=== PATIENT | female | born 1945 | race Caucasian/White ===

== ENCOUNTER 2017-01-10 12:55 | Day surgery (SDC) | payer MEDICARE, BC ==
[2017-01-06 18:21] VITALS: BMI 23.6
[~2017-01-10 12:55] MED LIST: LACTATED RINGERS 1,000 ML IV SCH; SODIUM CHLORIDE 0.9% 1,000 ML IV SCH
[2017-01-10 13:29] VITALS: TEMP 98.1
[2017-01-10 13:43] LABS: Glucose,Whole Blood 118 mg/dL (75-99)
[2017-01-10 14:40] LABS: Anion Gap 9 mmol/L; Blood Urea Nitrogen 26 mg/dL (7-17); Calcium 9.8 mg/dL (8.4-10.2); Carbon Dioxide 27 mmol/L (22-30); Chloride 108 mmol/L (98-107); Glucose 109 mg/dL (74-99); Non-African American GFR(MDRD) 54 (>60 ml/min/1.73 sqM); Potassium 4.8 mmol/L (3.5-5.1); Sodium 144 mmol/L (137-145)
[2017-01-10] MEDS ORDERED: MIDAZOLAM 2 MG/2 ML VIAL ONE (14:44)
[2017-01-10] MEDS ORDERED: fentaNYL (PF) 50 MCG/ML 2 ML AMP ONE (14:44)
[2017-01-10] MEDS ORDERED: PROPOFOL 10 MG/ML 20 ML VIAL IV ONE (14:44)
[2017-01-10] MEDS ORDERED: IV FLUID CONTINUATION 400 ML IV ONE (14:47)
--- NOTE | 2017-01-10 15:53 | CE ---
DATE OF SERVICE: Yue Lozoya has a history of severe cardiomyopathy, nonischemic, left bundle branch block, status post bi-V ICD. She has Riata ICD lead which has shown evidence of externalization. Her LV lead also has shown subtle evidence of externalization. She was brought in for DFT testing under anesthesia and cinefluoroscopy. Cinefluoroscopy of the leads reveals: 1. Externalized RV ICD lead. 2. Subtle externalized LV lead. No fractures or breaks noted. 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 The device was interrogated and was functioning normally. Lead impedances have been stable. The atrial pacing threshold was 1.2 v at 0.7 ms, P waves 0.6 mV, pacing impedance 350 ohms. RV pacing threshold was 1.25 v at 0.5 ms, R waves 11.9 mV with lead impedance 340 ohms. LV pacing threshold 0.75 v at 0.5 ms, pacing impedance of 450 ohms, high-voltage impedance 60 ohms. A DC ( ) shock was used to induce ventricular fibrillation. This was adequately and appropriately detected at least sensitivity and successfully internally defibrillated in the anodal configuration with SVC of shock impedance 60 ohms. Charge time 1.8 seconds. No postshock noise. The device was then reprogrammed according to the Madit-RIT parameters. IMPRESSION: 1. Fluoroscopically externalized RV lead. 2. Fluoroscopically subtle externalized LV lead, but 3. Normal electrical function of the leads and device with stable impedances and DFT at or below 10 joules. 4. Device reprogrammed according to the Madit-RIT programming.
[2017-01-10 17:12] VITALS: PULSE 62; RESP 16
[2017-01-10 17:13] VITALS: BP 127/79
== END 2017-01-10 17:22 | disposition home or self-care (01) ==
LOC: CATHEP 12:55
PROVIDERS: ATTEND Internal Medicine Clinical Cardiac Electrophysiology
DX: I42.0 Dilated cardiomyopathy (principal); Z45.02 Encounter for adjustment and management of automatic implantable cardiac defibrillator; I44.7 Left bundle-branch block, unspecified; I49.01 Ventricular fibrillation; I11.0 Hypertensive heart disease with heart failure; I50.22 Chronic systolic (congestive) heart failure; E78.5 Hyperlipidemia, unspecified; E11.9 Type 2 diabetes mellitus without complications; Z79.84 Long term (current) use of oral hypoglycemic drugs; Z79.82 Long term (current) use of aspirin; Z79.899 Other long term (current) drug therapy; Z88.1 Allergy status to other antibiotic agents; Z88.2 Allergy status to sulfonamides; Z91.09 Other allergy status, other than to drugs and biological substances
CPT/HCPCS: 93642; 76000; 80048; J2250; J3010; J2704

== ENCOUNTER 2018-10-03 06:42 | Day surgery (SDC) | payer MEDICARE, BC ==
[2018-09-27 16:27] VITALS: BMI 24.3
[~2018-10-03 06:42] MED LIST changes: +CLINDAMYCIN 600 MG in SODIUM CHLORIDE 0.9% IRRIGATIO 250 ML IRRIGATION ONE; +CLINDAMYCIN 900 MG in DEXTROSE 5% IN WATER 50 ML IVPB ONE; -LACTATED RINGERS 1,000 ML IV SCH
[2018-10-03] MEDS ORDERED: ePHEDrine SULFATE/0.9% NACL/PF 50 MG/5 ML SYRINGE IV ONE (07:22)
[2018-10-03] MEDS ORDERED: fentaNYL (PF) 50 MCG/ML 2 ML AMP ONE (07:22)
[2018-10-03] MEDS ORDERED: MIDAZOLAM 2 MG/2 ML VIAL ONE (07:22)
[2018-10-03] MEDS ORDERED: PROPOFOL 10 MG/ML 20 ML VIAL IV ONE (07:22)
[2018-10-03 07:23] LABS: Glucose,Whole Blood 139 mg/dL (75-99)
[2018-10-03 07:31] LABS: Basophils # (A) 0.1 k/uL (0-0.2); Basophils % (A) 1 %; Eosinophils # (A) 0.2 k/uL (0-0.7); Eosinophils % (A) 2 %; HCT 42.3 % (34.0-46.0); HGB 14.2 gm/dL (11.4-16.0); Lymphocytes # (A) 1.8 k/uL (1.0-4.8); Lymphocytes % (A) 21 %; MCH 31.6 pg (25.0-35.0); MCHC 33.6 g/dL (31.0-37.0); MCV 94.1 fL (80.0-100.0); Monocytes # (A) 0.6 k/uL (0-1.0); Monocytes % (A) 8 %; Neutrophils # (A) 5.8 k/uL (1.3-7.7); Neutrophils % (A) 68 %; Platelet Count 295 k/uL (150-450); RDW 12.4 % (11.5-15.5); WBC 8.5 k/uL (3.8-10.6)
[2018-10-03 07:44] LABS: Calcium 10.1 mg/dL (8.4-10.2); Potassium 4.9 mmol/L (3.5-5.1)
[2018-10-03] MEDS ORDERED: LIDOCAINE 1% INJ 10MG/ML (20 ML MDV) ONE (07:45)
[2018-10-03] MEDS ORDERED: LIDOCAINE 1% INJ 10MG/ML (20 ML MDV) SQ ONE (08:02)
--- NOTE | 2018-10-03 09:18 | P.HPCAR ---
History of Present Illness Diagnosis Nonischemic cardio myopathy severe LV dysfunction normal coronary arteries in 2006 LV gram by cath showed EF of 30% at that time. This was performed by Dr. Bergeron She underwent a biventricular ICD implantation by ne for severe congestive heart failure with severe LV dysfunction Within 2 weeks of implant she presented to the hospital with 2 episodes of VF arrest and was successfully resuscitated by the implanted device ICD generator change for device at [facility] for secondary prevention of sudden cardiac Left ventricular ejection fraction has improved during biventricular pacing to 50% CHF has improved significantly corresponding to the improvement in LV systolic function with biventricular pacing On guide lender to medical treatment ICD lead is externalized chronically but is functioning normally Successful ICD generator change was performed, biventricular with a [employer] medical coding technician Defibrillation testing was performed DFT was at 20 J with a cathodal configuration A DFT was 10 J with an anodal configuration Physical Exam Vitals: Vital Signs Temp Pulse Resp BP Pulse Ox 10/03/18 07:16 98.1 F 65 16 183/88 98 Intake and Output 10/02/18 10/03/18 10/03/18 22:59 06:59 14:59 Intake Total 40 56 Balance 40 56 Intake: IV 40 56 Other: Weight 77.5 kg Past Medical History Past Medical History: Heart Failure, Diabetes Mellitus, Eye Disorder, GERD/ Reflux, Hyperlipidemia, Hypertension, Neurologic Disorder, Pneumonia, Sleep Apnea/CPAP/BIPAP, Thyroid Disorder Additional Past Medical History / Comment(s): See Dr Pulido's H & P FOR CARDIAC HX, tremors, macular degeneration bilateral eyes. URI X4 months, resolved Aug 2018. Continues with SOB with activity. Hx pneumonia 2009. No CPAP. History of Any Multi-Drug Resistant Organisms: None Reported Past Surgical History: Adenoidectomy, AICD, Appendectomy, Back Surgery, Breast Surgery, Heart Catheterization, Tonsillectomy, Tubal Ligation Additional Past Surgical History / Comment(s): BILATERAL BREAST BIOPSY, BILATERAL CATARACTS, RIGHT RING and LEFT MIDDLE FINGER SURGERY, D & C, back surgery X2, eye surgery for tear duct. Past Anesthesia/Blood Transfusion Reactions: No Reported Reaction Additional Past Anesthesia/Blood Transfusion Reaction / Comment(s): No hx of problems with prior autologeous blood. Type of Cardiac Device: Biventricular Pacemaker, AICD Device Placement Date:: 2006 AND 2010 Past Psychological History: Anxiety, Depression Smoking Status: Never smoker Past Alcohol Use History: Occasional Past Drug Use History: None Reported - Past Family History Mother Family Medical History: Cancer Father Family Medical History: Cancer Physical Examination Vital Signs Temp Pulse Resp BP Pulse Ox 10/03/18 07:16 98.1 F 65 16 183/88 98 Intake and Output 10/02/18 10/03/18 10/03/18 22:59 06:59 14:59 Intake Total 40 56 Balance 40 56 Intake: IV 40 56 Other: Weight 77.5 kg Results 10/03/18 07:00 10/03/18 07:00 CBC 10/03/18 Range/Units 07:00 WBC 8.5 (3.8-10.6) k/uL RBC 4.50 (3.80-5.40) m/uL Hgb 14.2 (11.4-16.0) gm/dL Hct 42.3 (34.0-46.0) % Plt Count 295 (150-450) k/uL Comprehensive Metabolic Panel 10/03/18 Range/Units 07:00 Sodium 142 (137-145) mmol/L Potassium 4.9 (3.5-5.1) mmol/L Chloride 105 (98-107) mmol/L Carbon Dioxide 28 (22-30) mmol/L BUN 30 H (7-17) mg/dL Creatinine 0.97 (0.52-1.04) mg/dL Glucose 142 H (74-99) mg/dL Calcium 10.1 (8.4-10.2) mg/dL Current Medications Generic Name Dose Route Start Last Admin Trade Name Freq PRN Reason Stop Dose Admin Sodium Chloride 1,000 mls @ 50 mls/hr 10/03/18 06:19 10/03/18 06:59 Saline 0.9% IV 40 mls .Q20H [facility] Administration Intake and Output 10/02/18 10/03/18 10/03/18 22:59 06:59 14:59 Intake Total 40 56 Balance 40 56 Intake: IV 40 56 Other: Weight 77.5 kg Patient Weight 10/04/18 06:59 Weight 77.5 kg 10/03/18 07:00 10/03/18 07:00
[2018-10-03] MEDS ORDERED: HYDROcodone/APAP 5-325MG 1 EACH TAB PO PRN (09:19)
[2018-10-03] MEDS ORDERED: ACETAMINOPHEN IV (For NPO) 1,000 MG in EMPTY BAG 1 BAG IVPB ONE (09:19)
--- NOTE | 2018-10-03 09:38 | P.DS ---
Providers Attending physician: Serafin Pulido Primary care physician: [facility] Course: Patient underwent bilateral ICD generator change successfully today and will be discharged home after completion of IV antibiotics 9 PM no changes in her medications follow-up in 5 days the device clinic she'll be discharged home if she is hemodynamically stable and the ICD site is healing well Discussed with nurse Plan - Discharge Summary Discharge Rx Participant: No New Discharge Prescriptions: Continue Simvastatin [Zocor] 40 mg PO HS Ranitidine HCl [Zantac] 150 mg PO BID Cetirizine HCl [Zyrtec] 10 mg PO HS Lisinopril [Zestril] 5 mg PO QAM Carbidopa-Levodopa 25-100 mg [Sinemet 25-100 mg] 1 each PO TID glipiZIDE [Glucotrol XL] 5 mg PO QAM Carvedilol [Coreg] 6.25 mg PO BID Azelastine HCl [Astelin] 2 spray EA NOSTRIL BID PRN PRN Reason: Congestion Spironolactone [Aldactone] 12.5 mg PO QAM Aspirin 81 mg PO DAILY Hydrocodone/Acetaminophen [Hydrocodone/Acetaminophen 10-325] 1 each PO Q6H PRN PRN Reason: Pain Cholecalciferol [Vitamin D3] 1,000 unit PO DAILY Acetaminophen [Tylenol] 325 mg PO Q4H PRN PRN Reason: Pain Levothyroxine Sodium [Synthroid] 25 mcg PO QAM [place]leton-3 Fatty Acids/Fish Oil [Fish Oil 1,000 mg Softgel] 1 each PO BID Multivitamin [Children's Multivitamins] 1 each PO DAILY Lutein 10 mg PO QAM Calcium Carbonate/Vitamin D3 [Calcium 600-Vit D3 400 Tablet] 1 each PO DAILY Acetaminophen/Diphenhydramine [Tylenol PM 500-25mg] 1 tab PO HS Discharge Medication List Aspirin 81 mg PO DAILY 04/03/14 [History] Azelastine HCl [Astelin] 2 spray EA NOSTRIL BID PRN 04/03/14 [History] Carbidopa-Levodopa 25-100 mg [Sinemet 25-100 mg] 1 each PO TID 04/03/14 [History ] Carvedilol [Coreg] 6.25 mg PO BID 04/03/14 [History] Cetirizine HCl [Zyrtec] 10 mg PO HS 04/03/14 [History] Hydrocodone/Acetaminophen [Hydrocodone/Acetaminophen 10-325] 1 each PO Q6H PRN 04/03/14 [History] Lisinopril [Zestril] 5 mg PO QAM 04/03/14 [History] Ranitidine HCl [Zantac] 150 mg PO BID 04/03/14 [History] Simvastatin [Zocor] 40 mg PO HS 04/03/14 [History] Spironolactone [Aldactone] 12.5 mg PO QAM 04/03/14 [History] glipiZIDE [Glucotrol XL] 5 mg PO QAM 04/03/14 [History] Acetaminophen [Tylenol] 325 mg PO Q4H PRN 05/30/15 [History] Calcium Carbonate/Vitamin D3 [Calcium 600-Vit D3 400 Tablet] 1 each PO DAILY 08/03 [History] Cholecalciferol [Vitamin D3] 1,000 unit PO DAILY 05/30/15 [History] Levothyroxine Sodium [Synthroid] 25 mcg PO QAM 05/30/15 [History] Lutein 10 mg PO QAM 05/30/15 [History] Multivitamin [Children's Multivitamins] 1 each PO DAILY 05/30/15 [History] [place]apleton-3 Fatty Acids/Fish Oil [Fish Oil 1,000 mg Softgel] 1 each PO BID 05/30/15 [History] Acetaminophen/Diphenhydramine [Tylenol PM 500-25mg] 1 tab PO HS 01/06/17 [ History] Follow up Appointment(s)/Referral(s): Serafin Pulido MD [STAFF PHYSICIAN] - 1 Week (Discharge home today after 8 PM dose of IV antibiotics Give antibiotics at 12 noon 4 PM and 8 PM today clindamycin 900 mg each time Device clinic follow-up in 5 days Follow-up with Dr. Garcia in 4-6 months or as previously scheduled) Activity/Diet/Wound Care/Special Instructions: PATIENT EDUCATION MATERIAL Instructions following a heart rhythm device implant. 1. Keep dressing DRY for 5 DAYS. You may cover the area with Saran or Cling Wrap, prior to a shower. 2. The dressing will be removed in the Device Clinic at [facility]. Absorbable sutures were used to close the wound. 3. Avoid raising the left arm above the shoulder level. 4 week restriction 4. Avoid arm movements, like backscratching, rubbing the head, or pulling on a cord. 4 weeks restriction 5. Gentle range of motion movements of the shoulder, closest to the incision should be performed to avoid a frozen shoulder. (Pendulum exercises of the shoulder) 6. The opposite arm may be used freely. 7. Avoid driving for 7 days. 8. Avoid activities such as golfing, swimming, weed whacking, lifting more than 10 pounds weight, bowling, gymnastics and weight training/lifting. (6 weeks restriction) 9. Activities such as wood chopping with an axe, pull-ups in the gymnasium, power lifting, arc-welding, being close to home induction cooktops will always be a problem. 10. Arm sling is only a reminder not to raise the arm above the head. You do not need to keep the arm completely immobilized. Your free to move the arm and use it and for normal activities. In case of any problems, please call [facility], [place], @ [phone], Attention: Device Clinic Device clinic follow-up in 5 days Follow-up with primary model maker in 2-3 months No changes in medications Patient may be discharged home after completion of IV antibiotics did Please give clindamycin at 12 noon, 4 PM, 8 PM and discharge by 9 PM as long as patient is stable Discharge home today Discharge Disposition: HOME SELF-CARE
[2018-10-03 09:47] VITALS: RESP 18
[2018-10-03] MEDS ORDERED: ACETAMINOPHEN IV (For NPO) 1,000 MG/100 ML VIAL IVPB ONE (09:52)
--- NOTE | 2018-10-03 10:12 | CE ---
CARDIAC ELECTROPHYSIOLOGY REPORT This is a 73-year-old female who underwent a biventricular ICD generator change for device at [facility]. She has had ventricular fibrillation in 2006 and she was resuscitated by the device. LV function is improved with Bi V pacing. Heart failure function is improved with bi V pacing. The patient was brought to the EP lab in a fasting state. Written informed consent was obtained prior to the procedure. The left shoulder area was prepped and draped as per protocol and 1% lidocaine was used for local anesthesia. A 4 cm incision was made directly over the generator and carried down to the level of the generator. The generator was explanted. A partial capsulectomy was performed. The pocket was washed in antibiotic solution. New generator was implanted. The device was interrogated. The leads were interrogated. The right atrial lead was a [employer] model #1688TC, 52 cm in length, and serial number [id number]. P-waves 0.9 mV. Pacing impedance 380 ohms. Pacing threshold 0.9 V at 0.7 milliseconds. The ICD lead was [employer] model #7001, 65 cm in length and serial number [id number], implants in April of 2007 originally. R-waves 12 mV. Pacing impedance 350 ohms, pacing threshold 1.2 V at 0.5 milliseconds. This lead has been chronically externalized and cine fluoroscopy was performed during the procedure. This revealed no change in the extent of externalization of the ICD lead at the heel. The atrial lead was in a stable position in the right atrial appendage. The LV lead was in the posterolateral vein. The LV lead was a model #1058T, 86 cm in length and serial #[id number]. The explanted generator was a [employer] model #3231-40 and serial #[id number]. The LV pacing threshold was 0.75 V at 1 millisecond, pacing impedance of 480 ohms. DFT testing was performed under anesthesia. A DC Fibber shock was used to induce ventricular fibrillation. Initially, this was tested in the cathodal configuration and a 10-joule shock was unsuccessful, but a 20 joule shock was successful. This was repeated once again in the anodal configuration. In the anodal configuration, the successful DFT was at 10 joules with no post shock noise, 2 drop outs. The shock impedance was 77 ohms. Charge time 1.6 seconds. RESULTS: 1. Successful biventricular ICD generator change. 2. DFT successful defibrillation in the cathodal configuration of 20 joules. 3. Successful defibrillation in the anodal configuration of 10 joules. MADIT-RIT programming was performed biventricular pacing with simultaneous LV, RV pacing was programmed with a short AV delay. Patient tolerated the procedure well without any acute complication. MMODL / IJN: [id number] /
[2018-10-03 11:58] LABS: Glucose,Whole Blood 100 mg/dL (75-99)
[2018-10-03] MEDS: INSULIN ASPART 100 UNIT/ML 1 ML 10 ML VIAL SQ SCH ×3 (12:01→20:32)
[2018-10-03] MEDS: CLINDAMYCIN 900 MG in DEXTROSE 5% IN WATER 50 ML IVPB SCH ×6 (12:04→20:21)
[2018-10-03] MEDS: ACETAMINOPHEN TAB 325 MG TAB PO PRN ×2 (16:48→21:19)
[2018-10-03] MEDS: CARBIDOPA-LEVODOPA 25-100 MG 1 EACH TAB PO SCH ×2 (16:48→20:33)
[2018-10-03 16:58] LABS: Glucose,Whole Blood 137 mg/dL (75-99)
[2018-10-03] MEDS ORDERED: CARVEDILOL 6.25 MG TAB PO SCH (17:30)
[2018-10-03] MEDS ORDERED: ATORVASTATIN 20 MG TAB PO SCH (21:00)
[2018-10-03 21:08] VITALS: BP 137/89; PULSE 63; TEMP 98
[2018-10-04] MEDS ORDERED: LEVOTHYROXINE 25 MCG TAB PO SCH (06:30)
[2018-10-04] MEDS ORDERED: LISINOPRIL 5 MG TAB PO SCH (09:00)
[2018-10-04] MEDS ORDERED: SPIRONOLACTONE 25 MG TAB PO SCH (09:00)
[2018-10-04] MEDS ORDERED: ASPIRIN 81 MG PO SCH (09:00)
== END 2018-10-03 21:55 | disposition home or self-care (01) ==
LOC: CATHEP 06:42 → 1SOBS 08:51 → CATHEP 21:55
PROVIDERS: ATTEND Internal Medicine Clinical Cardiac Electrophysiology
DX: I42.0 Dilated cardiomyopathy (principal); I49.01 Ventricular fibrillation; Z45.02 Encounter for adjustment and management of automatic implantable cardiac defibrillator; I11.0 Hypertensive heart disease with heart failure; I50.22 Chronic systolic (congestive) heart failure; E78.5 Hyperlipidemia, unspecified; H35.30 Unspecified macular degeneration; E11.9 Type 2 diabetes mellitus without complications; Z79.84 Long term (current) use of oral hypoglycemic drugs; E07.9 Disorder of thyroid, unspecified; Z91.048 Other nonmedicinal substance allergy status; Z79.82 Long term (current) use of aspirin; Z79.890 Hormone replacement therapy; Z79.899 Other long term (current) drug therapy; Z88.1 Allergy status to other antibiotic agents; Z88.2 Allergy status to sulfonamides; Z88.8 Allergy status to other drugs, medicaments and biological substances
CPT/HCPCS: 93641; 33264; 80048; 85025; C1882; J2250; J2001; J3010; J0131; J2704